=== PATIENT | female | born 1975 | race Caucasian/White ===

== ENCOUNTER → 2018-09-18 14:52 | Outpatient (CLI) | payer OTHER, SELFPAY ==
--- NOTE | 2018-09-18 14:55 | DI.RAD.S_ITS ---
PROCEDURE: XR CERVICAL SPINE 4V OR 5V INDICATIONS: neck pain and chronic migraines TECHNIQUE: 5 views of the cervical spine were acquired. COMPARISON: None. FINDINGS: Bones: No fractures or dislocations to the T1 level. No suspicious bony lesions. There is normal range of motion between flexion and extension, with preserved normal bony alignment. Soft tissues: Prevertebral soft tissues are normal in thickness. IMPRESSION: Unremarkable radiographic examination of cervical spine. Normal range of motion. Dictated by: Salvatore Robin M.D. on 09/18/2018 at 15:43 Approved by: Salvatore Robin M.D. on 09/18/2018 at 15:46
== END ==
PROVIDERS: PCP Family Medicine; Visit Provider Family Medicine
DX: M54.2 Cervicalgia (principal); G43.709 Chronic migraine without aura, not intractable, without status migrainosus
CPT/HCPCS: 72050